=== PATIENT | male | born 1990 | race Caucasian/White ===

== ENCOUNTER 2025-04-11 15:09 | Inpatient (IN) | payer SELFPAY ==
[~2025-04-11] VITALS: Ht 172.7 cm; Wt 74.8 kg
[2025-04-11 15:21] VITALS: O2SAT 97
[2025-04-11 15:56] LABS: BASOPHILS % 0.4 % (0.0-2.0); EOSINOPHILS % 0.1 % (0.0-5.0); HEMATOCRIT. 37.1 % (42.0-52.0); HEMOGLOBIN. 12.7 g/dL (14.0-18.0); LYMPHOCYTES % 9.3 % (20.0-50.0); MEAN PLATELET VOLUME 8.4 fl (7.4-10.4); MONOCYTES % 5.6 % (2.0-8.0); NEUTROPHILS % 84.6 % (40.0-76.0); PLATELET 112 x1000/uL (130-400); RED BLOOD CELL COUNT 3.74 mill/uL (4.7-6.1); RED CELL DISTRIBUTION WIDTH 18.3 % (11.6-14.6)
[2025-04-11 16:09] LABS: CREATININE 0.9 mg/dL (0.6-1.3); UREA NITROGEN BLOOD 10 mg/dL (9-23)
[2025-04-11 16:10] LABS: ETHANOL BLOOD < 10 mg/dL (<10)
[2025-04-11 16:11] LABS: ASPARTATE AMINOTRANSFERASE 291 IU/L (<34); BILIRUBIN DIRECT 1.1 mg/dL (<=3.0); PROTEIN TOTAL 7.7 g/dL (6.0-8.3); TROPONIN I HIGH SENSITIVITY 8 ng/L (3.0-53)
[2025-04-11 16:12] LABS: BILIRUBIN TOTAL 3.0 mg/dL (0.1-1.0)
[2025-04-11] MEDS: MAGNESIUM 2 G PREMIX 50 ML IV ONE (17:10)
[2025-04-11] MEDS: LEVETIRACETAM 1000MG PREMIX 100 ML IV ONE (17:11)
[2025-04-11] MEDS: LORAZEPAM 2MG/ML UD SYRINGE ONE (17:16)
[2025-04-11] MEDS: KCL 20MEQ/100ML PREMIX 100 ML IV ONE (17:16)
[2025-04-11] MEDS: LORAZEPAM 2MG/ML UD SYRINGE IV NR (17:30)
[2025-04-11 18:31] LABS: TROPONIN I HIGH SENSITIVITY 12 ng/L (3.0-53)
[2025-04-11 19:40] VITALS: BP 116/69; PULSE 104; RESP 16; TEMP 36.6404
[2025-04-11 20:00] VITALS: BP 116/69; RESP 19; TEMP 36.9; O2SAT 97
[2025-04-11] MEDS ORDERED: DIPHENHYDRAMINE 50MG/ML VIAL IV PRN (21:00)
[2025-04-11] MEDS ORDERED: ONDANSETRON HCL 4MG/2ML INJ IV PRN (21:00)
[2025-04-11] MEDS ORDERED: LORAZEPAM 2MG/ML UD SYRINGE IV PRN (21:00)
[2025-04-11] MEDS ORDERED: ACETAMINOPHEN 325MG TABLET PO PRN (21:00)
[2025-04-11] MEDS ORDERED: IOHEXOL-350 100 ML BOTTLE ONE (21:38)
[2025-04-11] MEDS: MVI, ADULT NO.1 10 ML, FOLIC ACID 1 MG, THIAMINE HCL 100 MG in SODIUM CHLORIDE 0.9% 1,0... IV ONE (23:55)
[2025-04-11] MEDS: SODIUM CHLORIDE 0.9% 3ML FLUSH IVF SCH (23:56)
[2025-04-11] MEDS: POTASSIUM CHLORIDE 20MEQ TABLET SR PO SCH (23:56)
[2025-04-12] VITALS: BP 104/58; RESP 19; TEMP 37.1; O2SAT 96
[2025-04-12] MEDS: LEVETIRACETAM 1000MG PREMIX 100 ML IV SCH (00:01)
[2025-04-12] MEDS: CHLORDIAZEPOXIDE 25MG CAPSULE PO SCH (00:01)
[2025-04-12] MEDS: ACETAMINOPHEN 325MG TABLET PO PRN (03:15)
[2025-04-12 04:00] VITALS: BP 100/60; RESP 19; TEMP 36.6; O2SAT 100
[2025-04-12 07:11] LABS: BASOPHILS % 0.3 % (0.0-2.0); EOSINOPHILS % 0.6 % (0.0-5.0); HEMATOCRIT. 35.2 % (42.0-52.0); HEMOGLOBIN. 12.2 g/dL (14.0-18.0); LYMPHOCYTES % 11.4 % (20.0-50.0); MEAN PLATELET VOLUME 8.8 fl (7.4-10.4); MONOCYTES % 8.0 % (2.0-8.0); NEUTROPHILS % 79.7 % (40.0-76.0); PLATELET 89 x1000/uL (130-400); RED BLOOD CELL COUNT 3.55 mill/uL (4.7-6.1); RED CELL DISTRIBUTION WIDTH 17.9 % (11.6-14.6)
[2025-04-12 07:21] LABS: CREATININE 0.8 mg/dL (0.6-1.3)
[2025-04-12 07:22] LABS: UREA NITROGEN BLOOD 9 mg/dL (9-23)
[2025-04-12 07:24] LABS: PHOSPHORUS 2.3 mg/dL (2.5-4.9)
[2025-04-12 08:00] VITALS: BP 109/41; PULSE 79; RESP 18; TEMP 36.5; O2SAT 100
[2025-04-12 08:14] LABS: *AMPHETAMINES SCREEN URINE NEGATIVE (NEGATIVE); *BARBITURATES SCREEN URINE NEGATIVE (NEGATIVE); *BENZODIAZEPINES SCREEN URINE NEGATIVE (NEGATIVE); *COCAINE SCREEN URINE NEGATIVE (NEGATIVE); CANNABINOID URINE SCREEN NEGATIVE (NEGATIVE); ECSTASY MDMA SCREEN URINE NEGATIVE (NEGATIVE); METHADONE URINE SCREEN NEGATIVE (NEGATIVE); OPIATES URINE SCREEN NEGATIVE (NEGATIVE); PHENCYCLIDINE URINE SCREEN NEGATIVE (NEGATIVE)
[2025-04-12] MEDS: POTASSIUM CHLORIDE 20MEQ TABLET SR PO SCH ×2 (12:23→17:11)
[2025-04-12 12:30] VITALS: BP 107/62; PULSE 88; RESP 18; TEMP 37; O2SAT 99
[2025-04-12 16:30] VITALS: BP 108/70; PULSE 91; RESP 18; TEMP 37.1; O2SAT 98
[2025-04-12] MEDS ORDERED: POTASSIUM CHLORIDE 20MEQ TABLET SR PO SCH (17:00)
[2025-04-12 20:00] VITALS: BP 110/74; PULSE 90; RESP 20; TEMP 37.4; O2SAT 98
[2025-04-13] VITALS: BP 116/73; PULSE 94; RESP 20; TEMP 37.6; O2SAT 97
[2025-04-13 04:00] VITALS: BP 106/60; PULSE 78; RESP 19; TEMP 36.1; O2SAT 100
[2025-04-13 07:52] VITALS: BP 116/73; PULSE 90; RESP 18; TEMP 36.5; O2SAT 98
== END 2025-04-13 16:44 | disposition left against medical advice (07) | DRG 53 ==
LOC: ER 15:09 → ENRESERV 18:09 → 8WST 18:13
PROVIDERS: ADMIT Internal Medicine; ATTEND Internal Medicine
PROC: 4A10X4Z Monitoring of Central Nervous Electrical Activity, External Approach (ICD-10-PCS; principal; 2025-04-13)
DX: G40.901 Epilepsy, unspecified, not intractable, with status epilepticus (principal); F10.139 Alcohol abuse with withdrawal, unspecified; Y90.0 Blood alcohol level of less than 20 mg/100 ml; Z53.29 Procedure and treatment not carried out because of patient's decision for other reasons; Z87.891 Personal history of nicotine dependence
CPT/HCPCS: 36415; 70496; 70498; 71045; 73060; 73130; 80048; 80076; 80305; 80320; 82550; 83735; 84100; 84484; 85025; 93970; 95816; 99285; A4606; G0378; J1953; J2060; J3411; J3475; J3480; J3490; J7030; Q9967; G0480

== ENCOUNTER 2025-05-13 23:07 | Emergency (ER) | payer OTHER ==
[~2025-05-13] VITALS: Ht 172.7 cm; Wt 66.0 kg
[2025-05-13 23:40] VITALS: O2SAT 96
[2025-05-14] MEDS: ACETAMINOPHEN 500MG TABLET PO ONE (01:12)
[2025-05-14 04:56] LABS: BASOPHILS % 0.9 % (0.0-2.0); EOSINOPHILS % 0.9 % (0.0-5.0); HEMATOCRIT. 41.2 % (42.0-52.0); HEMOGLOBIN. 13.7 g/dL (14.0-18.0); LYMPHOCYTES % 37.9 % (20.0-50.0); MEAN PLATELET VOLUME 8.0 fl (7.4-10.4); MONOCYTES % 9.5 % (2.0-8.0); NEUTROPHILS % 50.8 % (40.0-76.0); PLATELET 153 x1000/uL (130-400); RED BLOOD CELL COUNT 4.18 mill/uL (4.7-6.1); RED CELL DISTRIBUTION WIDTH 14.8 % (11.6-14.6)
[2025-05-14 05:09] LABS: CREATININE 0.9 mg/dL (0.6-1.3); UREA NITROGEN BLOOD 11 mg/dL (9-23)
[2025-05-14] MEDS ORDERED: IBUP-1455 MT (07:09)
[2025-05-14] MEDS ORDERED: T3 PO (07:09)
[2025-05-14 08:03] VITALS: BP 106/61; PULSE 90; RESP 15; TEMP 36.7; O2SAT 100
[2025-05-14] MEDS ORDERED: IOHEXOL-350 100 ML BOTTLE ONE (09:08)
== END 2025-05-14 08:24 | disposition home or self-care (01) ==
LOC: ER 23:07
DX: S22.009A Unspecified fracture of unspecified thoracic vertebra, initial encounter for closed fracture (principal); S42.032A Displaced fracture of lateral end of left clavicle, initial encounter for closed fracture; S00.81XA Abrasion of other part of head, initial encounter; R51.9 Headache, unspecified; V03.10XA Pedestrian on foot injured in collision with car, pick-up truck or van in traffic accident, initial encounter; Y93.89 Activity, other specified; Y92.89 Other specified places as the place of occurrence of the external cause; Y99.8 Other external cause status
CPT/HCPCS: 99285; 70450; 72170; 73030; 72125; 71250; 74174; 71275; 80048; 85025; 86850; 86900; 86901; 36415; Q9967

== ENCOUNTER 2025-05-28 18:40 | Inpatient (IN) | payer MEDICAID, OTHER ==
[~2025-05-28] VITALS: Ht 170.2 cm; Wt 70.8 kg
[~2025-05-28 18:40] MED LIST: IBUP-1455 MT; T3 PO
[2025-05-28 18:45] VITALS: O2SAT 97
[2025-05-28] MEDS: SODIUM CHLORIDE 0.9% 1,000 ML IV ONE (19:07)
[2025-05-28 20:24] LABS: BASOPHILS % 0.6 % (0.0-2.0); EOSINOPHILS % 0.3 % (0.0-5.0); HEMATOCRIT. 39.1 % (42.0-52.0); HEMOGLOBIN. 13.3 g/dL (14.0-18.0); LYMPHOCYTES % 15.1 % (20.0-50.0); MEAN PLATELET VOLUME 8.2 fl (7.4-10.4); MONOCYTES % 9.0 % (2.0-8.0); NEUTROPHILS % 75.0 % (40.0-76.0); PLATELET 113 x1000/uL (130-400); RED BLOOD CELL COUNT 4.13 mill/uL (4.7-6.1); RED CELL DISTRIBUTION WIDTH 14.6 % (11.6-14.6)
[2025-05-28 20:39] LABS: CREATININE 0.8 mg/dL (0.6-1.3); UREA NITROGEN BLOOD 9 mg/dL (9-23)
[2025-05-28] MEDS: LORAZEPAM 2MG/ML UD SYRINGE IV SCH (20:57)
[2025-05-28 21:13] LABS: CLARITY URINE CLEAR (CLEAR); COLOR URINE ORANGE (YELLOW); GLUCOSE URINE NEGATIVE (NEGATIVE); KETONES URINE 1+ (NEGATIVE); LEUKOCYTE ESTERASE URINE TRACE (NEGATIVE); NITRITE URINE NEGATIVE (NEGATIVE); OCCULT BLOOD URINE 3+ (NEGATIVE); PH URINE 7.0 (4.5-8.0); PROTEIN URINE TRACE (NEGATIVE); SPECIFIC GRAVITY URINE 1.018 (1.005-1.030); UROBILINOGEN URINE 1.0 E.U./dL (0.2-1.0)
[2025-05-28 21:17] LABS: *AMPHETAMINES SCREEN URINE NEGATIVE (NEGATIVE)
[2025-05-28 21:18] LABS: *BARBITURATES SCREEN URINE NEGATIVE (NEGATIVE); *BENZODIAZEPINES SCREEN URINE NEGATIVE (NEGATIVE); *COCAINE SCREEN URINE NEGATIVE (NEGATIVE); CANNABINOID URINE SCREEN NEGATIVE (NEGATIVE); ECSTASY MDMA SCREEN URINE NEGATIVE (NEGATIVE); METHADONE URINE SCREEN NEGATIVE (NEGATIVE); OPIATES URINE SCREEN NEGATIVE (NEGATIVE); PHENCYCLIDINE URINE SCREEN NEGATIVE (NEGATIVE)
[2025-05-28 21:37] LABS: BACTERIA URINE 1+; RBC URINE 50-100 /hpf (0-2); SQUAMOUS EPITHELIAL CELL URINE FEW /lpf (RARE/1+); WBC URINE 0-2 /hpf (0-2)
[2025-05-28] MEDS ORDERED: LORAZEPAM 2MG/ML UD SYRINGE IV PRN (23:45)
[2025-05-28 23:59] VITALS: BP 122/70; PULSE 95; RESP 18; TEMP 36.6404
[2025-05-29 00:26] VITALS: BP 123/81; PULSE 98; RESP 18; TEMP 36.7; O2SAT 100
[2025-05-29 04:00] VITALS: BP 120/76; PULSE 88; RESP 17; TEMP 37; O2SAT 99
[2025-05-29 06:27] LABS: CREATININE 0.8 mg/dL (0.6-1.3)
[2025-05-29 06:28] LABS: UREA NITROGEN BLOOD 8 mg/dL (9-23)
[2025-05-29 06:29] LABS: ASPARTATE AMINOTRANSFERASE 618 IU/L (<34)
[2025-05-29 06:30] LABS: BILIRUBIN TOTAL 4.0 mg/dL (0.1-1.0); PROTEIN TOTAL 7.1 g/dL (6.0-8.3)
[2025-05-29 06:45] LABS: BASOPHILS % 0.3 % (0.0-2.0); EOSINOPHILS % 1.1 % (0.0-5.0); HEMATOCRIT. 38.4 % (42.0-52.0); HEMOGLOBIN. 13.1 g/dL (14.0-18.0); LYMPHOCYTES % 21.6 % (20.0-50.0); MEAN PLATELET VOLUME 8.9 fl (7.4-10.4); MONOCYTES % 9.4 % (2.0-8.0); NEUTROPHILS % 67.6 % (40.0-76.0); PLATELET 99 x1000/uL (130-400); RED BLOOD CELL COUNT 4.01 mill/uL (4.7-6.1); RED CELL DISTRIBUTION WIDTH 14.5 % (11.6-14.6)
[2025-05-29 08:00] VITALS: BP 126/69; PULSE 98; RESP 20; TEMP 36.4; O2SAT 100
[2025-05-29] MEDS: LEVETIRACETAM 500MG PREMIX 100ML IV SCH (08:18)
[2025-05-29] MEDS ORDERED: LEVETIRACETAM 500MG in NACL 100ML PREMIX IV SCH (09:00)
[2025-05-29 09:12] LABS: HEPATITIS A AB IGM NEGATIVE (Negative)
[2025-05-29 09:13] LABS: HEPATITIS B CORE AB IGM NEGATIVE (Negative); HEPATITIS C AB NON REACTIVE (Neg) (Negative)
[2025-05-29] MEDS: HYDROCODONE/ACETAMINOPHEN 5/325MG TABLET PO PRN (09:32)
[2025-05-29 12:00] VITALS: BP 114/64; PULSE 77; RESP 19; TEMP 36.7; O2SAT 98
[2025-05-29 16:00] VITALS: BP 104/72; PULSE 86; RESP 19; TEMP 36.4; O2SAT 99
[2025-05-29] MEDS: THIAMINE HCL 100MG TABLET PO SCH (16:03)
[2025-05-29] MEDS: MULTIVITAMINS,THER W-MINERALS TABLET PO SCH (16:04)
[2025-05-29] MEDS: FOLIC ACID 1MG TABLET PO SCH (16:04)
[2025-05-29 20:00] VITALS: BP 110/65; PULSE 75; RESP 16; TEMP 36.8; O2SAT 100
[2025-05-30] VITALS: BP 114/63; PULSE 68; RESP 17; TEMP 36.2; O2SAT 97
[2025-05-30 04:00] VITALS: BP 109/58; PULSE 69; RESP 17; TEMP 36.7; O2SAT 98
[2025-05-30 08:00] VITALS: BP 117/68; PULSE 82; RESP 18; TEMP 36.8; O2SAT 100
[2025-05-30 08:05] LABS: BASOPHILS % 0.5 % (0.0-2.0); EOSINOPHILS % 1.6 % (0.0-5.0); HEMATOCRIT. 37.6 % (42.0-52.0); HEMOGLOBIN. 12.5 g/dL (14.0-18.0); LYMPHOCYTES % 22.4 % (20.0-50.0); MEAN PLATELET VOLUME 8.6 fl (7.4-10.4); MONOCYTES % 9.0 % (2.0-8.0); NEUTROPHILS % 66.5 % (40.0-76.0); PLATELET 87 x1000/uL (130-400); RED BLOOD CELL COUNT 3.90 mill/uL (4.7-6.1); RED CELL DISTRIBUTION WIDTH 14.5 % (11.6-14.6)
[2025-05-30 08:21] LABS: CREATININE 0.8 mg/dL (0.6-1.3); UREA NITROGEN BLOOD 8 mg/dL (9-23)
[2025-05-30 08:23] LABS: ASPARTATE AMINOTRANSFERASE 332 IU/L (<34); BILIRUBIN TOTAL 2.5 mg/dL (0.1-1.0); PROTEIN TOTAL 7.0 g/dL (6.0-8.3)
[2025-05-30 12:00] VITALS: BP 123/66; PULSE 93; RESP 18; TEMP 36.5; O2SAT 100
[2025-05-30] MEDS ORDERED: FOLI-43 PO (12:34)
[2025-05-30] MEDS ORDERED: THIA100T72 PO (12:34)
[2025-05-30] MEDS ORDERED: MULT-379 MT (12:34)
== END 2025-05-30 14:41 | disposition home or self-care (01) | DRG 53 ==
LOC: ER 18:40 → ENRESERV 21:21 → 5WST 21:32
PROVIDERS: ADMIT Internal Medicine; ATTEND Internal Medicine
DX: G40.909 Epilepsy, unspecified, not intractable, without status epilepticus (principal); D69.6 Thrombocytopenia, unspecified; M48.54XA Collapsed vertebra, not elsewhere classified, thoracic region, initial encounter for fracture; R74.01 Elevation of levels of liver transaminase levels; R74.8 Abnormal levels of other serum enzymes; F10.239 Alcohol dependence with withdrawal, unspecified; R16.0 Hepatomegaly, not elsewhere classified; K76.9 Liver disease, unspecified; D18.00 Hemangioma unspecified site; K80.20 Calculus of gallbladder without cholecystitis without obstruction; F41.9 Anxiety disorder, unspecified; R31.9 Hematuria, unspecified; D53.9 Nutritional anemia, unspecified; Z79.899 Other long term (current) drug therapy; V19.9XXA Pedal cyclist (driver) (passenger) injured in unspecified traffic accident, initial encounter; Y93.55 Activity, bike riding; Y92.89 Other specified places as the place of occurrence of the external cause; Y99.8 Other external cause status; Y90.0 Blood alcohol level of less than 20 mg/100 ml
CPT/HCPCS: 36415; 71045; 72128; 73080; 76700; 80048; 80053; 80305; 80320; 81003; 82550; 85025; 86705; 86709; 87340; 93005; 99291; J1953; J2060; G0480